=== PATIENT | female | born 1990 | race Caucasian/White ===

== ENCOUNTER 2024-02-23 07:44 | Emergency (ER) | payer MEDICAID ==
[~2024-02-23] VITALS: Ht 162.6 cm; Wt 50.0 kg
[2024-02-23 07:46] VITALS: TEMP 99.4
[2024-02-23 07:57] VITALS: BP 113/68; PULSE 80; RESP 14; O2SAT 97
[2024-02-23] MEDS ORDERED: CHLO473M2 PO (08:06)
[2024-02-23] MEDS ORDERED: AMOX-117 PO (08:06)
== END 2024-02-23 08:26 | disposition home or self-care (01) ==
LOC: ER 07:45
DX: K08.89 Other specified disorders of teeth and supporting structures (principal); Z79.2 Long term (current) use of antibiotics; Z79.899 Other long term (current) drug therapy
CPT/HCPCS: 99283